=== PATIENT | female | born 1965 | race Caucasian/White ===

== ENCOUNTER → 2017-11-16 | Outpatient (CLI) | payer OTHER ==
[~2017-11-16] MED LIST: METO50TA16 PO
[2017-11-16 13:31] LABS: T3 FREE 3.43 pg/ml (2.30-4.20)
[2017-11-16 14:31] LABS: FOLLICLE STIMULAT HORMONE 79.93 IU/L
== END | disposition home or self-care (01) ==
LOC: C.LAB 10:24
PROVIDERS: ATTEND Internal Medicine Endocrinology, Diabetes & Metabolism
DX: E03.9 Hypothyroidism, unspecified (principal); E61.1 Iron deficiency; N95.1 Menopausal and female climacteric states; E55.9 Vitamin D deficiency, unspecified

== ENCOUNTER → 2017-11-25 | Outpatient (CLI) | payer OTHER | END | disposition home or self-care (01) | LOC: C.CPL 15:46 | PROVIDERS: ATTEND Orthopaedic Surgery Sports Medicine | DX: M75.01 Adhesive capsulitis of right shoulder (principal) ==